=== PATIENT | male | born 1965 | race Caucasian/White ===

== ENCOUNTER 2017-06-25 00:01 | Emergency (ER) | payer BC ==
[~2017-06-25] VITALS: Ht 182.9 cm; Wt 156.3 kg
[~2017-06-25 00:01] MED LIST: MOTRIN800 MG PO; NORCO 7.5/321 TABLET PO
[2017-06-25] MEDS ORDERED: CLEOCIN300 MG PO (01:36)
[2017-06-25 01:54] VITALS: BP 164/82
== END 2017-06-25 01:55 | disposition home or self-care (01) ==
LOC: EME 00:01
DX: S80.812A Abrasion, left lower leg, initial encounter (principal); L03.116 Cellulitis of left lower limb; E66.01 Morbid (severe) obesity due to excess calories; W10.9XXA Fall (on) (from) unspecified stairs and steps, initial encounter
CPT/HCPCS: 99281; 99284